=== PATIENT | male | born 1985 | race African-American/Black ===

== ENCOUNTER → 2019-11-22 | Emergency (ER) | payer SELFPAY ==
[~2019-11-22] VITALS: Ht 175.3 cm; Wt 85.7 kg
[~2019-11-22] MED LIST: KETOROLAC TROMETHAMINE INJ 30 MG/ML VIAL ONE; KETOROLAC TROMETHAMINE INJ 60 MG/2 ML VIAL IM ONE
[2019-11-22 14:36] VITALS: BP 154/93
--- NOTE | 2019-11-22 14:45 | NUR ---
SEEN AND EXAMINED BY
--- NOTE | 2019-11-22 14:57 | NUR ---
PT C/O BACK PAIN AND UA SENT TO LAB
[2019-11-22 15:03] LABS: APPEARANCE,URINE Clear (CLEAR); BILIRUBIN,URINE Negative (NEGATIVE); BLOOD, URINE Trace-lysed Ery/uL (NEGATIVE); COLOR,URINE Yellow (YELLOW); KETONES,URINE Negative (NEGATIVE); LEUKOCYTE ESTERASE ,URINE Negative (NEGATIVE); NITRITE, URINE Positive (NEGATIVE); PROTEIN,URINE Negative (NEGATIVE); UGLUCOSE Negative (NEGATIVE); UROBILINOGEN,URINE 0.2 EU/dL (0.2)
[2019-11-22 15:05] LABS: BACTERIA,URINE Many /HPF (None Seen); RBC,URINE 0-2 /HPF (0-2); SQUAMOUS EPITHELIAL CELL,UR Few /HPF (None Seen); WBC,URINE 0-2 /HPF (0-3)
--- NOTE | 2019-11-22 15:39 | NUR ---
TORADOL 30 MG IM LEFT BUTTOCKS TOLERATED WELL
== END | disposition home or self-care (01) ==
LOC: ER 14:30
DX: M54.5 Low back pain (principal)
CPT/HCPCS: 81001; 87086; 96372; 99283; J1885; 81000-TC

== ENCOUNTER 2019-11-30 14:06 | Emergency (ER) | payer MEDICAID ==
[~2019-11-30] VITALS: Ht 175.3 cm; Wt 74.8 kg
--- NOTE | 2019-11-30 14:28 | NUR ---
DR VOGEL AT BEDSIDE FOR EVAL
[2019-11-30 14:53] LABS: BASOPHILS # (AUTO) 0.2 /CMM (0.0-0.2); EOSINOPHILS % (AUTO) 0.9 % (0.0-6.0); HEMATOCRIT 45 % (39-51); LYMPHOCYTES # (AUTO) 1.1 /CMM (0.8-4.8); LYMPHOCYTES % (AUTO) 24.5 % (20.0-44.0); MEAN CORPUSCULAR HGB CONC 33 g/dl (31.0-36.0); MEAN CORPUSCULAR VOLUME 91 fL (80-96); MONOCYTES # (AUTO) 0.2 /CMM (0.1-1.30); MONOCYTES % (AUTO) 5.5 % (2.0-12.0); NEUTROPHILS # (AUTO) 2.9 /CMM (1.8-8.9); PLATELET COUNT (AUTO) 186 /CMM (150-450); RED BLOOD CELL COUNT(AUTO) 4.99 MIL/uL (4.5-6.0); WHITE BLOOD COUNT (AUTO) 4.5 K/uL (4.3-11.0)
[2019-11-30 14:54] LABS: BASOPHILS % (AUTO) 5.1 % (0.0-2.0)
[2019-11-30 15:23] LABS: CALCIUM, SERUM 9.8 mg/dL (8.5-10.1); CARBON DIOXIDE 30 mmol/L (21-32); CHLORIDE 99 mmol/L (98-107); CREATININE 1.2 mg/dL (0.6-1.3); GLUCOSE 109 mg/dL (74-106); POTASSIUM 4.5 mmol/L (3.5-5.1); SODIUM SERUM 136 mmol/L (136-145); UREA NITROGEN, BLOOD 17 mg/dL (7-18)
[2019-11-30 15:25] LABS: ALANINE AMINOTRANSFERASE 28 U/L (12-78); ALBUMIN 4.5 g/dL (3.4-5.0); ALKALINE PHOSPHATASE 91 U/L (46-116); ASPARTATE AMINOTRANSFERASE 20 U/L (15-37); BILIRUBIN,TOTAL 0.6 mg/dL (0.2-1.0); TOTAL PROTEIN, SERUM 8.1 g/dL (6.4-8.2)
[2019-11-30] MEDS ORDERED: LIDOCAINE VISCOUS 2% UD 15 ML UDC MM ONE (15:30)
[2019-11-30] MEDS ORDERED: MAG HYDROX/AL HYDROX/SIMETH 30 ML UDC PO ONE (15:30)
--- NOTE | 2019-11-30 15:31 | NUR ---
ROSA ERAZO AT BEDSIDE TAKING OVER FOR DR VOGEL.
[2019-11-30] MEDS ORDERED: MAG HYDROX/AL HYDROX/SIMETH 30 ML UDC ONE (15:32)
[2019-11-30] MEDS ORDERED: LIDOCAINE VISCOUS 2% UD 15 ML UDC ONE (15:32)
[2019-11-30 15:47] LABS: LYMPHOCYTES % (MANUAL) 23 % (16-48); MONOCYTES % (MANUAL) 8 % (0-11.0); NEUTROPHILS % (MANUAL) 61 (42-76); REACTIVE LYMPHOCYTES 8 % (0-0)
--- NOTE | 2019-11-30 16:45 | NUR ---
Patient discharged to home in stable condition. Written and verbal after care instructions given. Patient verbalizes understanding of instruction.
[2019-11-30 16:46] VITALS: BP 131/87
== END 2019-11-30 16:47 | disposition home or self-care (01) ==
LOC: ER 14:07
DX: K21.9 Gastro-esophageal reflux disease without esophagitis (principal); R07.89 Other chest pain
CPT/HCPCS: 36415; 71045-TC; 80048-TC; 80076-TC; 84484-TC; 85025-TC; 85378-TC